=== PATIENT | female | born 1960 | race Hispanic/Latino ===

== ENCOUNTER 2018-06-11 17:19 | Emergency (ER) | payer BC ==
[2018-06-11] MEDS ORDERED: NA CHLORIDE 0.9% 1,000 ML ONE (17:51)
[2018-06-11] MEDS ORDERED: ONDANSETRON 4 MG/2 ML VIAL ONE (17:51)
[2018-06-11] MEDS ORDERED: MORPHINE 4 MG/ML SYR ONE (17:51)
[2018-06-11 17:56] LABS: Absolute Lymphocytes (CBC) 0.7 K/uL (0.7-4.9); Absolute Monocytes 0.4 K/uL (0.1-1.3); Absolute Neutrophil 7.3 K/uL (1.8-8.0); Basophils % 2.5 % (0-1.3); Eosinophils % 0.5 % (0-4.4); Lymphocytes % 7.9 % (15.3-44.8); MPV 11.1 fL (7.6-11.3); Monocytes % 4.3 % (3.3-12.3); RBC Red Blood Cell Count 4.94 M/uL (3.86-4.86)
[2018-06-11 18:01] LABS: Protime INR 1.04
--- NOTE | 2018-06-11 18:16 | RAD REPORT ---
EXAM DESCRIPTION: CT - Stone Protocol - 06/11/2018 6:00 pm CLINICAL HISTORY: Right-sided abdominal and flank pain COMPARISON: None. TECHNIQUE: Axial 5 mm thick images were obtained without oral or IV contrast. The [id number] span s the entirety of the system partially obscuring uppermost abdomen and lung bases. All CT scans are performed using dose optimization technique as appropriate and may include automated exposure control or mA/KV adjustment according to patient size. FINDINGS: No hydronephrosis is present and no obstructing ureteral calculi. Mild fullness of each re nal pelvis noted without hydroureter. No stranding in the adjacent fat. No suspicious renal masses. I sodense masses and pyelonephritis are not excluded on a stone protocol CT scan. No urinary bladder lockwood spicious finding. No significant adrenal finding. Uterus and ovaries show no acute findings. Imaged portions of the liver, spleen and pancreas show no suspicious findings on non-contrast imaging . No gallbladder or biliary tree abnormality identified. No suspicious bowel findings. No appendicitis. No hernia, mass or bulky lymphadenopathy noted. No free air, free fluid or inflammatory stranding. Mu ltiple phleboliths are present. No significant bony abnormality. IMPRESSION: No obstructing calculus or acute finding identified. Isodense masses and pyelonephritis are not excluded on stone protocol technique. No appendicitis or acute GI process.
--- NOTE | 2018-06-11 18:18 | RAD REPORT ---
EXAM DESCRIPTION: RAD - Chest Single View - 06/11/2018 6:08 pm CLINICAL HISTORY: Flank pain, chest pain COMPARISON: None. TECHNIQUE: AP portable chest image was obtained 1805 hours . FINDINGS: Lungs are clear. Heart and vasculature are normal. No measurable pleural effusion and no p neumothorax. No acute bony abnormality seen. No acute aortic findings suspected. IMPRESSION: No acute cardiopulmonary process.
[2018-06-11 18:28] LABS: Albumin 4.6 g/dL (3.4-5.0); Bilirubin Direct 0.1 mg/dL (0-0.2); Bilirubin Total 0.5 mg/dL (0.2-1.0); Potassium 3.5 mmol/L (3.5-5.1); Protein, Total 7.9 g/dL (6.4-8.2); Troponin (Emerg Dept Use Only) 0.03 ng/mL (0.0-0.045)
[2018-06-11] MEDS ORDERED: KETOROLAC 30 MG/ML INJ ONE (18:43)
[2018-06-11 20:43] LABS: Urine Blood NEGATIVE (NEG); Urine Glucose NEGATIVE (NEG); Urine Protein 1+ (NEG); Urine pH 8.5 (5.0-7.0)
--- NOTE | 2018-06-11 21:09 | ER ---
Nurse's Notes [facility] Name: Justina Woods Age: 58 yrs Sex: Female : 1960 Arrival Date: 06/11/2018 Time: 17:21 Bed 7 Private MD: Diagnosis: Aortic aneurysm and dissection Presentation: 06/11 17:23 Presenting complaint: EMS states: originally she told us it was chest pain, we gave 4 tw2 aspirin, then her family told us that it was her back, she states its all right sided back pain, that she noticed it at work but it has gotten progressively worse, hypertensive for us, 126 mg/dL BGL. Transition of care: patient was not received from another setting of care. Onset of symptoms was June 11, 2018. Risk Assessment: Do you want to hurt yourself or someone else? Patient reports no desire to harm self or others. Initial Sepsis Screen: Does the patient meet any 2 criteria? No. Patient's initial sepsis screen is negative. Does the patient have a suspected source of infection? No. Patient's initial sepsis screen is negative. Care prior to arrival: Medication(s) given: ASA, 81 mg, x 4, IV initiated. 20 GA, in the left antecubital area, Glucose check: 126. 17:23 Method Of Arrival: EMS: [facility] tw2 17:23 Acuity: TAYLOR 3 tw2 Triage Assessment: 17:29 General: Appears uncomfortable, Behavior is anxious, fussy. Pain: Complains of pain in tw2 right mid back and right low back. EENT: No signs and/or symptoms were reported regarding the EENT system. Neuro: Level of Consciousness is awake, alert, obeys commands, Oriented to person, place, time, situation. Cardiovascular: Heart tones S1 S2 Patient's skin is warm and dry. Respiratory: Airway is patent Respiratory effort is even, unlabored, Respiratory pattern is regular, symmetrical, Breath sounds are clear bilaterally. GI: No signs and/or symptoms were reported involving the gastrointestinal system. Abdomen is flat, Bowel sounds present X 4 quads. : No signs and/or symptoms were reported regarding the genitourinary system. Derm: No signs and/or symptoms reported regarding the dermatologic system. Musculoskeletal: Circulation, motion, and sensation intact. Range of motion: intact in all extremities. Historical: - Allergies: 17:28 No Known Allergies; tw2 - Home Meds: 17:28 levothyroxine 25 mcg tab 1 tab once daily [Active]; spironolactone 25 mg Oral tab 1 tab tw2 2 times per day [Active]; aspirin 81 mg Oral TbEC 1 tab once daily [Active]; atorvastatin 20 mg oral tab 1 tab once daily [Active]; Augmentin 500-125 mg Oral tab 1 tab every 8 hours [Active]; - PMHx: 17:28 Hypertension; Hypothyroidism; tw2 - Immunization history:: Adult Immunizations. - Social history:: Smoking status: . - Ebola Screening: : Patient denies travel to an Ebola-affected area in the 21 days before illness onset. Screenin:24 Abuse screen: Denies threats or abuse. Denies injuries from another. Nutritional sv screening: No deficits noted. Tuberculosis screening: No symptoms or risk factors identified. Fall Risk None identified. Assessment: 17:40 Reassessment: see triage assessment. tw2 18:56 Reassessment: No changes from previously documented assessment. Patient and/or family tw2 updated on plan of care and expected duration. Pain level reassessed. Patient is alert, oriented x 3, equal unlabored respirations, skin warm/dry/pink. Neuro: Level of Consciousness is awake, alert, obeys commands, Oriented to person, place, time, situation. 19:20 Reassessment: Patient appears in no apparent distress at this time. Patient and/or aa1 family updated on plan of care and expected duration. Pain level reassessed. Patient is alert, oriented x 3, equal unlabored respirations, skin warm/dry/pink. Pt awaiting urine specimen and repeat troponin. 20:24 Reassessment: Patient appears in no apparent distress at this time. Patient and/or aa1 family updated on plan of care and expected duration. Pain level reassessed. Patient is alert, oriented x 3, equal unlabored respirations, skin warm/dry/pink. Repeat troponin drawn at this time. D/C pending results. 21:06 Reassessment: Patient appears in no apparent distress at this time. Patient and/or aa1 family updated on plan of care and expected duration. Pain level reassessed. Patient is alert, oriented x 3, equal unlabored respirations, skin warm/dry/pink. Repeat troponin elevated; pt to be admitted. WATER PURIFICATION CHEMIST at bedside discussing results with pt \\T\\ family. 21:40 Reassessment: Patient appears in no apparent distress at this time. Patient and/or aa1 family updated on plan of care and expected duration. Pain level reassessed. Patient is alert, oriented x 3, equal unlabored respirations, skin warm/dry/pink. Awaiting bed assignment. 22:35 Reassessment: Patient appears in no apparent distress at this time. Patient and/or aa1 family updated on plan of care and expected duration. Pain level reassessed. Patient is alert, oriented x 3, equal unlabored respirations, skin warm/dry/pink. Dr. Whiteside at bedside for admission assessment. 23:30 Reassessment: Patient appears in no apparent distress at this time. Patient and/or aa1 family updated on plan of care and expected duration. Pain level reassessed. Patient is alert, oriented x 3, equal unlabored respirations, skin warm/dry/pink. CT reported as aortic dissection, pt notified by provider and informed of transfer to another facility. Will remedicate for pain and continue to monitor until transfer complete. 06/12 00:35 Reassessment: Patient appears in no apparent distress at this time. Patient and/or aa1 family updated on plan of care and expected duration. Pain level reassessed. Patient is alert, oriented x 3, equal unlabored respirations, skin warm/dry/pink. Pt reports back pain has improved after morphine Patient states symptoms have improved. 00:37 Reassessment: attempted to call spouse to update on pt's change in disposition no one bb answered left a message. 00:47 Reassessment: notified pt's spouse of change in disposition pt to be transferred to [facility] room CVA # [id number], spouse verbalized understanding of and agrees to plan of care. 00:57 Reassessment: Report given to Lisa Gustafson RN at [facility]. aa1 01:34 Reassessment: Patient appears in no apparent distress at this time. Patient is alert, aa1 oriented x 3, equal unlabored respirations, skin warm/dry/pink. Pt reports back pain of 3/10. [facility] present for transfer to [facility]. Vital Signs: 06/11 17:28 BP 181 / 91; Pulse 66; Resp 22; Temp 98.1(O); Pulse Ox 100% on R/A; Weight 79.38 kg tw2 (R); Pain 10/10; 18:17 BP 183 / 86; Pulse 62; Resp 20; Pulse Ox 100% ; sv 18:17 Pain 8/10; tw2 18:54 Pulse Ox 93% on R/A; tw2 19:14 BP 175 / 80; Pulse 53; Resp 18; Pulse Ox 100% on 2 lpm NC; tl2 20:26 BP 163 / 98; Pulse 58; Resp 16; Pulse Ox 100% on R/A; aa1 21:30 BP 166 / 94; Pulse 70; Resp 16; Pulse Ox 99% on R/A; Pain 5/10; aa1 21:42 BP 142 / 101; Pulse 64; Resp 18; Temp 97.9; Pulse Ox 99% on R/A; aa1 22:30 BP 159 / 107; Pulse 56; Resp 18; Pulse Ox 100% on R/A; Pain 7/10; aa1 23:51 BP 165 / 86; Pulse 60; Resp 16; Pulse Ox 100% on R/A; Pain 7/10; aa1 06/12 00:08 BP 171 / 90; Pulse 63; Resp 16; Pulse Ox 100% on R/A; aa1 00:20 BP 157 / 89; Pulse 63; Resp 16; Temp 98.2; Pulse Ox 100% on R/A; Pain 4/10; aa1 00:44 BP 149 / 90; Pulse 58; Resp 16; Pulse Ox 99% on R/A; Pain 4/10; aa1 01:00 BP 142 / 84; Pulse 62; aa1 01:10 BP 152 / 88; Pulse 66; aa1 01:20 BP 146 / 79; Pulse 63; aa1 01:26 BP 127 / 60; Pulse 58; Resp 16; Pulse Ox 99% on R/A; aa1 01:34 BP 121 / 56; Pulse 63; Resp 16; Pulse Ox 99% on R/A; Pain 3/10; aa1 01:43 BP 107 / 69; Pulse 60; aa1 06/11 18:54 pt placed on 2L nc at this time. tw2 ED Course: 17:21 Patient arrived in ED. em1 17:22 Mary Sepulveda RN is Primary Nurse. tw2 17:24 Arm band placed on. sv 17:24 Patient has correct armband on for positive identification. Bed in low position. Call sv light in reach. Side rails up X2. Pulse ox on. NIBP on. Door closed. Warm blanket given. Head of bed elevated. 17:24 Maintain EMS IV. Dressing intact. Site clean \\T\\ dry. Gauge \\T\\ site: 20G L AC. sv 17:25 Gigi Diaz NP is PHCP. pm1 17:25 Kingston Blanc MD is Attending Physician. pm1 17:25 Triage completed. tw2 17:49 EKG done, by certified medication technician. reviewed by Gigi Diaz NP. sm3 18:01 CT Stone Protocol: Right flank pain In Process Unspecified. EDMS 18:01 CT completed. Pt tolerated procedure poorly. Patient moved to CT via stretcher. Patient eh moved to radiology via stretcher. 18:07 XRAY Chest (1 view) In Process Unspecified. EDMS 18:18 Patient moved back from CT. sv 18:57 Report given to DIDIER Floyd and DIDIER Babin = outstanding is urine dip \\T\\ upt, f/u of 1L ns tw2 bolus running at this time. 21:08 Jorge Short MD is Hospitalizing Provider. pm1 23:08 Angio Aorta For Dissection In Process Unspecified. EDMS 06/12 00:06 Inserted saline lock: 20 gauge in right antecubital area, using aseptic technique. oe 01:43 No provider procedures requiring assistance completed. Patient transferred, IV remains aa1 in place. No redness/swelling at site. Administered Medications: 06/11 17:42 Drug: Zofran 4 mg Route: IVP; Site: left antecubital; tw2 18:18 Follow up: Response: No adverse reaction tw2 17:45 Drug: morphine 4 mg Route: IVP; Site: left antecubital; tw2 18:17 Follow up: Pain 8/10 Adult; Response: No adverse reaction; Pain is decreased; "it tw2 helped a little but not much" 17:48 Drug: NS 0.9% 1000 ml Route: IV; Rate: 1000 ml; Site: left antecubital; tw2 18:33 Drug: TORadol 30 mg Route: IVP; Site: left antecubital; tw2 18:58 Follow up: Response: No adverse reaction; Pain is decreased tw2 21:34 Drug: Lovenox 1 mg/kg Route: Sub-Q; Site: right lower abdomen; aa1 22:30 Follow up: Response: No adverse reaction aa1 21:34 Drug: Nitroglycerin 0.4 mg Route: Sublingual; aa1 21:40 Follow up: Response: No adverse reaction; Pain is decreased aa1 21:34 Drug: Nitroglycerin 0.4 mg Route: Sublingual; aa1 06/12 00:03 Drug: Nitro Drip - (Nitroglycerin 50 mg, D5W 250 ml) Route: IV; Rate: 20 mcg/min; Site: aa1 left antecubital; 00:43 Follow up: Rate change 25 mcg/min aa1 00:57 Follow up: Rate change 30 mcg/min aa1 01:06 Follow up: Rate change 35 mcg/min aa1 01:15 Follow up: Rate change 45 mcg/min aa1 01:25 Follow up: IV Status: Infusion continued upon transfer aa1 01:25 Follow up: Rate change 80 mcg/min; Rate change ordered by Dr. Baldwin aa1 01:30 Follow up: Rate change 100 mcg/min; Rate change ordered by Dr. Baldwin aa1 00:05 Drug: Zofran 4 mg Route: IVP; Site: left antecubital; aa1 00:58 Follow up: Response: No adverse reaction aa1 00:07 Drug: morphine 4 mg Route: IVP; Site: left antecubital; aa1 00:58 Follow up: Response: No adverse reaction; Pain is decreased aa1 00:08 Drug: Cardizem 5 mg/hr Route: IV; Rate: calculated rate; Site: left antecubital; aa1 00:57 Follow up: Rate change 7.5 mg/hr aa1 01:03 Follow up: Rate change 10 mg/hr aa1 01:08 Follow up: Rate change 12.5 mg/hr aa1 01:15 Follow up: Rate change 15 mg/hr aa1 01:20 Follow up: IV Status: Infusion continued upon transfer aa1 Intake: Outcome: 06/11 21:09 Decision to Hospitalize by Provider. pm1 23:35 ER care complete, transfer ordered by . pm1 06/12 01:43 Transferred by ground EMS to [facility], Transfer form completed. aa1 Condition: stable Discharge instructions given to patient, Instructed on the need for transfer, Demonstrated understanding of instructions. 01:49 Patient left the ED. aa1 Signatures: Dispatcher [employer] EDLexy Atkinson, RN RN Mariel Harrison RN RN aa1 Robby Layne Brenda, RN RN bb Martinez, Eric em1 Gigi Diaz, WATER PURIFICATION CHEMIST WATER PURIFICATION CHEMIST pm1 Mary Sepulveda RN RN tw2 Eli Majano RN RN tl2 Emil Baca Shakira 3 Corrections: (The following items were deleted from the chart) 06/11 18:26 17:23 Presenting complaint: EMS states: originally she told us it was check pain, we tw2 gave 4 aspirin, then her family told us that it was back back, she states its all right sided back back, that she noticed it at work but it has gotten progressively worse, hypertensive for us, 126 mg/dL BGL, tw2 20:28 19:20 Reassessment: Patient appears in no apparent distress at this time. Patient aa1 and/or family updated on plan of care and expected duration. Pain level reassessed. Patient is alert, oriented x 3, equal unlabored respirations, skin warm/dry/pink. Pt awaiting urine specimen and repeat troponin aa1 06/12 01:07 01:04 Rate change 30 mcg/min aa1 aa1 01:22 01:10 Rate change 12.5 mcg/min aa1 aa1 01:23 01:22 Rate change 12.5 mg/hr [facility] aa1 01:24 01:15 Rate change 15 mcg/min aa aa1
--- NOTE | 2018-06-11 21:09 | EDPHYS ---
Physician Documentation [facility] Name: Justina Woods Age: 58 yrs Sex: Female : 1960 Arrival Date: 06/11/2018 Time: 17:21 Bed 7 Private MD: ED Physician Kingston Blanc HPI: 06/11 18:00 This 58 yrs old Female presents to ER via EMS with complaints of Back Pain. pm1 18:00 The patient presents with pain that is acute, with no known mechanism of injury. The pm1 symptoms are located in the right subscapular area. Onset: The symptoms/episode began/occurred today, at 14:30. The pain radiates to the right upper quadrant. Associated signs and symptoms: Pertinent positives: nausea, vomit x 1 this AM, Pertinent negatives: fever, headache. The problem was sustained from unknown cause. Modifying factors: The patient symptoms are alleviated by nothing, the patient symptoms are aggravated by nothing. Severity of symptoms: in the emergency department the symptoms are actually worse. The patient has not experienced similar symptoms in the past. The patient has not recently seen a physician. Patient with one episode of vomiting this AM. Vomited her home medications. At 1430 today patient with onset of chest pain on the right breast area. Radiation to right back area. Patient went home to see if she could sleep it off. Chest pain resolved but the pain in her right back area continued. Patient called the EMS and was given Aspirin, but told them she did not have any chest pain, only back pain. Patient said that she is unable to tell if she had shortness of breath due to the pain. Historical: - Allergies: 17:28 No Known Allergies; tw2 - Home Meds: 17:28 levothyroxine 25 mcg tab 1 tab once daily [Active]; spironolactone 25 mg Oral tab 1 tab tw2 2 times per day [Active]; aspirin 81 mg Oral TbEC 1 tab once daily [Active]; atorvastatin 20 mg oral tab 1 tab once daily [Active]; Augmentin 500-125 mg Oral tab 1 tab every 8 hours [Active]; - PMHx: 17:28 Hypertension; Hypothyroidism; tw2 - Immunization history:: Adult Immunizations. - Social history:: Smoking status: . - Ebola Screening: : Patient denies travel to an Ebola-affected area in the 21 days before illness onset. ROS: 18:00 Constitutional: Negative for fever, chills, and weight loss, Eyes: Negative for injury, pm1 pain, redness, and discharge, ENT: Negative for injury, pain, and discharge, Neck: Negative for injury, pain, and swelling. 18:00 Respiratory: Negative for shortness of breath, cough, wheezing, and pleuritic chest pain, Abdomen/GI: Negative for abdominal pain, nausea, vomiting, diarrhea, and constipation, : Negative for injury, bleeding, discharge, and swelling, MS/Extremity: Negative for injury and deformity, Skin: Negative for injury, rash, and discoloration. 18:00 Neuro: Negative for headache, weakness, numbness, tingling, and seizure. 18:00 Cardiovascular: Positive for chest pain, of the right breast, Negative for edema, palpitations. 18:00 Back: Positive for of the right subscapular area, pain. Exam: 18:00 Constitutional: This is a well developed, well nourished patient who is awake, alert, pm1 and in no acute distress. Head/Face: Normocephalic, atraumatic. Eyes: Pupils equal round and reactive to light, extra-ocular motions intact. Lids and lashes normal. Conjunctiva and sclera are non-icteric and not injected. Cornea within normal limits. Periorbital areas with no swelling, redness, or edema. ENT: Nares patent. No nasal discharge, no septal abnormalities noted. Tympanic membranes are normal and external auditory canals are clear. Oropharynx with no redness, swelling, or masses, exudates, or evidence of obstruction, uvula midline. Mucous membranes moist. Neck: Trachea midline, no thyromegaly or masses palpated, and no cervical lymphadenopathy. Supple, full range of motion without nuchal rigidity, or vertebral point tenderness. No Meningismus. Chest/axilla: Normal chest wall appearance and motion. Nontender with no deformity. No lesions are appreciated. Cardiovascular: Regular rate and rhythm with a normal S1 and S2. No gallops, murmurs, or rubs. Normal PMI, no JVD. No pulse deficits. Respiratory: Lungs have equal breath sounds bilaterally, clear to auscultation and percussion. No rales, rhonchi or wheezes noted. No increased work of breathing, no retractions or nasal flaring. Abdomen/GI: Soft, non-tender, with normal bowel sounds. No distension or tympany. No guarding or rebound. No evidence of tenderness throughout. Back: No spinal tenderness. No costovertebral tenderness. Full range of motion. Skin: Warm, dry with normal turgor. Normal color with no rashes, no lesions, and no evidence of cellulitis. MS/ Extremity: Pulses equal, no cyanosis. Neurovascular intact. Full, normal range of motion. 18:00 ECG was reviewed by the Attending Physician. NSR, abnormal ECG, V1 inverted T wave, 66 BPM 18:00 Neuro: Orientation: is normal, Motor: is normal, moves all fours, Sensation: is normal, no obvious gross deficits. Vital Signs: 17:28 BP 181 / 91; Pulse 66; Resp 22; Temp 98.1(O); Pulse Ox 100% on R/A; Weight 79.38 kg tw2 (R); Pain 10/10; 18:17 BP 183 / 86; Pulse 62; Resp 20; Pulse Ox 100% ; sv 18:17 Pain 8/10; tw2 18:54 Pulse Ox 93% on R/A; tw2 19:14 BP 175 / 80; Pulse 53; Resp 18; Pulse Ox 100% on 2 lpm NC; tl2 20:26 BP 163 / 98; Pulse 58; Resp 16; Pulse Ox 100% on R/A; aa1 21:30 BP 166 / 94; Pulse 70; Resp 16; Pulse Ox 99% on R/A; Pain 5/10; aa1 21:42 BP 142 / 101; Pulse 64; Resp 18; Temp 97.9; Pulse Ox 99% on R/A; aa1 22:30 BP 159 / 107; Pulse 56; Resp 18; Pulse Ox 100% on R/A; Pain 7/10; aa1 23:51 BP 165 / 86; Pulse 60; Resp 16; Pulse Ox 100% on R/A; Pain 7/10; aa1 06/12 00:08 BP 171 / 90; Pulse 63; Resp 16; Pulse Ox 100% on R/A; aa1 00:20 BP 157 / 89; Pulse 63; Resp 16; Temp 98.2; Pulse Ox 100% on R/A; Pain 4/10; aa1 00:44 BP 149 / 90; Pulse 58; Resp 16; Pulse Ox 99% on R/A; Pain 4/10; aa1 01:00 BP 142 / 84; Pulse 62; aa1 01:10 BP 152 / 88; Pulse 66; aa1 01:20 BP 146 / 79; Pulse 63; aa1 01:26 BP 127 / 60; Pulse 58; Resp 16; Pulse Ox 99% on R/A; aa1 01:34 BP 121 / 56; Pulse 63; Resp 16; Pulse Ox 99% on R/A; Pain 3/10; aa1 01:43 BP 107 / 69; Pulse 60; aa1 06/11 18:54 pt placed on 2L nc at this time. tw2 MDM: 17:38 Patient medically screened. pm1 19:33 Data reviewed: vital signs. Data interpreted: Pulse oximetry: on room air is 100 %. pm1 Interpretation: normal. 20:01 ED course: Patient providing urine sample now. Patient was concerned that her blood pm1 pressure was elevated. Patient reports vomiting her home medications this AM. I instructed the patient that she can take her home blood pressure medications now. Patient only take spirolactone 25 mg PO daily for her blood pressure. 21:05 Counseling: I had a detailed discussion with the patient and/or guardian regarding: the pm1 historical points, exam findings, and any diagnostic results supporting the discharge/admit diagnosis, lab results, radiology results, the need for further work-up and treatment in the hospital. 21:15 Physician consultation: Jorge Short MD was called at 21:15, was contacted at 21:15, pm1 regarding admission, patient's condition, and will see patient in ED. 23:49 ED course: Patient requests to be transferred to [facility] due to proximity of family. pm06/12 00:02 ED course: [facility] at capacity, patient informed and fine with transfer to [address] 06/11 17:37 Order name: Basic Metabolic Panel; Complete Time: 18:31 pm06/11 17:37 Order name: CBC with Diff; Complete Time: 18:28 pm06/11 17:37 Order name: LFT's; Complete Time: 18:31 pm06/11 17:37 Order name: Magnesium; Complete Time: 18:31 pm06/11 17:37 Order name: NT PRO-BNP; Complete Time: 18:31 pm1 06/11 17:37 Order name: PT-INR; Complete Time: 18:28 pm1 06/11 17:37 Order name: Troponin (emerg Dept Use Only); Complete Time: 18:31 pm1 06/11 17:37 Order name: XRAY Chest (1 view); Complete Time: 18:28 pm1 06/11 17:37 Order name: CT Stone Protocol: Right flank pain; Complete Time: 18:28 pm1 06/11 17:37 Order name: Lipase; Complete Time: 18:31 pm1 06/11 19:38 Order name: Troponin (emerg Dept Use Only); Complete Time: 21:03 pm1 06/11 20:11 Order name: Urine Dipstick--Ancillary (enter results); Complete Time: 20:44 cm6 06/11 22:42 Order name: Angio Aorta For Dissection EDSC 06/11 17:37 Order name: EKG; Complete Time: 17:38 pm1 06/11 17:37 Order name: Cardiac monitoring; Complete Time: 17:49 pm1 06/11 17:37 Order name: EKG - Nurse/Tech; Complete Time: 17:49 pm1 06/11 17:37 Order name: IV Saline Lock; Complete Time: 17:49 pm1 06/11 17:37 Order name: Labs collected and sent; Complete Time: 17:49 pm1 06/11 17:37 Order name: O2 Per Protocol; Complete Time: 17:49 pm1 06/11 17:37 Order name: O2 Sat Monitoring; Complete Time: 17:49 pm1 06/11 17:37 Order name: Urine Dipstick-Ancillary (obtain specimen); Complete Time: 20:29 pm1 06/11 17:37 Order name: Urine Test (obtain specimen); Complete Time: 20:28 pm1 Administered Medications: 06/11 17:42 Drug: Zofran 4 mg Route: IVP; Site: left antecubital; tw2 18:18 Follow up: Response: No adverse reaction tw2 17:45 Drug: morphine 4 mg Route: IVP; Site: left antecubital; tw2 18:17 Follow up: Pain 8/10 Adult; Response: No adverse reaction; Pain is decreased; "it tw2 helped a little but not much" 17:48 Drug: NS 0.9% 1000 ml Route: IV; Rate: 1000 ml; Site: left antecubital; tw2 18:33 Drug: TORadol 30 mg Route: IVP; Site: left antecubital; tw2 18:58 Follow up: Response: No adverse reaction; Pain is decreased tw2 21:34 Drug: Lovenox 1 mg/kg Route: Sub-Q; Site: right lower abdomen; aa1 22:30 Follow up: Response: No adverse reaction aa1 21:34 Drug: Nitroglycerin 0.4 mg Route: Sublingual; aa1 21:40 Follow up: Response: No adverse reaction; Pain is decreased aa1 21:34 Drug: Nitroglycerin 0.4 mg Route: Sublingual; aa1 06/12 00:03 Drug: Nitro Drip - (Nitroglycerin 50 mg, D5W 250 ml) Route: IV; Rate: 20 mcg/min; Site: aa1 left antecubital; 00:43 Follow up: Rate change 25 mcg/min aa1 00:57 Follow up: Rate change 30 mcg/min aa1 01:06 Follow up: Rate change 35 mcg/min aa1 01:15 Follow up: Rate change 45 mcg/min aa1 01:25 Follow up: IV Status: Infusion continued upon transfer aa1 01:25 Follow up: Rate change 80 mcg/min; Rate change ordered by Dr. Baldwin aa1 01:30 Follow up: Rate change 100 mcg/min; Rate change ordered by Dr. Baldwin aa1 00:05 Drug: Zofran 4 mg Route: IVP; Site: left antecubital; aa1 00:58 Follow up: Response: No adverse reaction aa1 00:07 Drug: morphine 4 mg Route: IVP; Site: left antecubital; aa1 00:58 Follow up: Response: No adverse reaction; Pain is decreased aa1 00:08 Drug: Cardizem 5 mg/hr Route: IV; Rate: calculated rate; Site: left antecubital; aa1 00:57 Follow up: Rate change 7.5 mg/hr aa1 01:03 Follow up: Rate change 10 mg/hr aa1 01:08 Follow up: Rate change 12.5 mg/hr aa1 01:15 Follow up: Rate change 15 mg/hr aa1 01:20 Follow up: IV Status: Infusion continued upon transfer aa1 Disposition: 10:29 Co-signature as Attending Physician, Kingston Blanc MD I agree with the assessment and kdr plan of care. Disposition: 06/11/18 23:35 Transfer ordered to [facility]. Diagnosis is Aortic aneurysm and dissection. - Reason for transfer: Higher level of care. - Accepting physician is [facility]. - Condition is Stable. - Problem is new. - Symptoms have improved. Critical care time excluding procedures: 06/11 23:56 Critical care time: Bedside Care: 15 minutes, Consultation: 15 minutes, Family pm1 Intervention: 5 minutes. Total time: 35 minutes Signatures: Dispatcher [employer] EDMariel Multani RN RN aa1 Kingston Blanc MD MD kdr Gigi Diaz NP [employer] pm1 Mary Sepulveda RN RN tw2 Corrections: (The following items were deleted from the chart) 23:34 21:09 Hospitalization Ordered by Jorge Short MD for Inpatient Admission. Preliminary pm1 diagnosis is Non-ST elevation (NSTEMI) myocardial infarction. Bed requested for Telemetry/MedSurg (Inpatient). Status is Inpatient Admission. Condition is Stable. Problem is new. Symptoms have improved. UTI on Admission? No. pm1 23:42 23:35 06/11/2018 23:[address] [facility]. Diagnosis is pm1 Aortic aneurysm and dissection. Reason for transfer: Higher level of care. Accepting physician is [facility] Hospitalist. Condition is Stable. Problem is new. Symptoms have improved. pm1 06/12 01:49 06/11 23:42 06/11/2018 23:35 Transfer ordered to [facility]. Diagnosis is Aortic aa1 aneurysm and dissection. Reason for transfer: Higher level of care. Accepting physician is [facility]. Condition is Stable. Problem is new. Symptoms have improved. pm1
[2018-06-11] MEDS ORDERED: NITROGLYCERIN 0.4 MG/TAB SL ONE (21:38)
[2018-06-11] MEDS ORDERED: ENOXAPARIN 80 MG/0.8 ML SQ ONE (21:39)
[2018-06-11] MEDS ORDERED: MORPHINE 2 MG/ML SYR IV ONE (22:42)
[2018-06-11] MEDS ORDERED: NA CHLORIDE 0.9% 0 ML ONE (23:52)
[2018-06-11] MEDS ORDERED: dilTIAZem HCl 25 MG/5 ML VIAL IV ONE (23:55)
[2018-06-11] MEDS ORDERED: NA CHLORIDE 0.9% 100 ML IV ONE (23:57)
[2018-06-12] MEDS ORDERED: NITROGLYCERIN/D5W 50 MG/250 ML BTL IV ONE (00:07)
[2018-06-12] MEDS ORDERED: MORPHINE 4 MG/ML SYR ONE (00:07)
[2018-06-12] MEDS ORDERED: ONDANSETRON 4 MG/2 ML VIAL ONE (00:07)
--- NOTE | 2018-06-12 10:16 | EKG ---
Test Date: 2018-06-11 Test Time: 17:46:33 Truck Guard: YANNICK MEASUREMENT RESULTS: Intervals: Rate: 66 VT: 160 QRSD: 90 QT: 428 QTc: 448 [place]: P: 52 VT: 160 QRS: -2 T: 37 INTERPRETIVE STATEMENTS: Normal sinus rhythm Possible Left atrial enlargement Possible Anterior infarct, age undetermined Abnormal ECG Compared to ECG 08/27/2007 12:54:03 No significant changes Electronically Signed On 06-12-18 10:16:14 CDT by Vega Sim
--- NOTE | 2018-06-14 12:17 | RAD REPORT ---
EXAM DESCRIPTION: CT - Angio Aorta For Dissection - 06/12/2018 1:15 am CLINICAL HISTORY: 58 years Female, R/O aortic dissection COMPARISON: None. TECHNIQUE: 3 mm axial images of the chest, abdomen, and pelvis were obtained with intravenous contra st. 3 mm coronal and sagittal reformatted images were obtained. This exam was performed according to our departmental dose-optimization program, which includes autom ated exposure control, adjustment of the mA and/or kV according to patient size and/or use of iterati ve reconstruction technique. INTRAVENOUS CONTRAST: Not documented. Please refer to medical record. FINDINGS: Thoracic aorta: No evidence of aortic aneurysm or dissection. Very mild atherosclerotic di sease of the aortic arch. The branch vessels of the aortic arch are unremarkable. Abdominal aorta: There is a focal short segment dissection identified involving the anterior wall of the abdominal aorta just above the origin of the inferior mesenteric artery. The dissection extends o elier a distance of 0.9 cm in length. The false lumen measures 0.4 x 1.1 cm in AP and transverse dimens ions. The branch vessels of the abdominal aorta demonstrate mild atherosclerotic disease about the co mmon iliac arteries bilaterally. Lung ferrell: Unremarkable. Mediastinal structures: No pericardial effusion. No adenopathy. Pleural spaces: Normal. Liver: Normal. Spleen: Normal. Pancreas: Normal. Gallbladder: Normal. Adrenal glands: Normal. Kidneys: Normal. Retroperitoneal structures: No adenopathy. Bowel survey: There is a moderate residual stool within the ascending and transverse colon. Urinary bladder: Normal. Uterus and adnexa: Evidence of previous bilateral tubal ligation. Peritoneal cavity: Unremarkable. Mesentery structures: Unremarkable. Abdominal wall: Tiny umbilical hernia containing fat. Bony structures: No suspicious lesions. IMPRESSION: 1. Short segment aortic dissection involving the anterior wall of the mid abdominal aort a just superior to the origin of the inferior mesenteric artery. NOTIFICATION: Results were discussed with Dr. ALEENA GA at 11:30 p.m. Electronically signed by: Robles Campos MD 06/11/2018 11:29 PM CDT Due to temporary technical issues with the PACS/Fluency reporting system, reports are being signed by the in house radiologist as a courtesy to ensure prompt reporting. The interpreting radiologist is f ully responsible for the content of the report.
== END 2018-06-12 01:49 | disposition short-term general hospital (02) ==
LOC: ER 17:19
DX: I71.02 Dissection of abdominal aorta (principal); I10 Essential (primary) hypertension; E03.9 Hypothyroidism, unspecified; Z79.82 Long term (current) use of aspirin
CPT/HCPCS: 36415; 71045; 71275; 74175; 74176; 76377; 80048; 80076; 81003; 83690; 83735; 83880; 84484; 85025; 85610; 93005; 96365; 96368; 96372; 96375; 99285; J1650; J2405; J7030; Q9967